=== PATIENT | male | born 1940 | race Caucasian/White ===

== ENCOUNTER 2016-06-21 23:38 | Inpatient (IN) | payer OTHER ==
[~2016-06-21] VITALS: Ht 180.3 cm; Wt 86.9 kg
[~2016-06-21 23:38] MED LIST: ASPIR-LOW81 MG PO; CALTRATE+D3 PL1 EACH PO; GLIMEPIRIDE4 MG PO; JENTADUETO 2.51 EAC2 PO; VITAMIN D31000 UNI2 PO
[2016-06-21 23:56] LABS: HEMATOCRIT 44.8 % (38.0-50.0); MCHC 36.2 G/DL (30.0-36.0); MCV 85.8 FL (86-99); MEAN PLAT.VOLUME 10.4 uM^3 (9.0-12.4); PLATELET COUNT 165 K/uL (156-360); RBC DIS.WIDTH-CV 13.5 % (11.8-14.6); RBC DIS.WIDTH-SD 41.8 % (39-53); RED BLOOD COUNT 5.22 M/uL (4.00-5.50); WHITE BLOOD COUNT 14.1 K/uL (4.1-10.2)
[2016-06-22 00:08] LABS: CHLORIDE 103 mEq/L (99-109); POTASSIUM 4.4 mEq/L (3.7-5.4); SODIUM 140 mEq/L (136-147)
[2016-06-22 00:10] LABS: GLUCOSE 236 mg/dL (70-99)
[2016-06-22 00:11] LABS: ANION GAP 13 MEQ/L (2-14)
[2016-06-22 00:12] LABS: TOTAL BILIRUBIN 3.4 mg/dL (0.0-1.0)
[2016-06-22 00:14] LABS: ALKALINE PHOSPHATASE 120 IU/L (3-129); GFR ESTIMATE (CALCULATED) 42 mL/min/
[2016-06-22 00:15] LABS: UREA NITROGEN (BUN) 20 mg/dL (9-23)
[2016-06-22 00:45] LABS: LIPASE 823 U/L (1.0-51.0)
[2016-06-22] MEDS ORDERED: GLUCOPHAGE1000 MG PO (01:56)
[2016-06-22] MEDS ORDERED: TRADJENTA5 MG PO (01:57)
[2016-06-22] MEDS ORDERED: CALTRATE PLUS1 EACH PO (01:57)
[2016-06-22 04:42] LABS: ADD MIUA? YES; BILIRUBIN SMALL; BLOOD NEGATIVE; COLOR DK YELLOW ((YELLOW)); GLUCOSE (STRIP) 250; KETONES 15; LEUKOCYTES NEGATIVE; NITRITE NEGATIVE; PROTEIN (STRIP) 30; SPECIFIC GRAVITY 1.021 (1.000-1.030)
[2016-06-22 05:04] LABS: BACTERIA 1+; EPITHELIAL CELLS RARE; MUCUS NONE SEEN; RED BLOOD CELLS 0-5 /HPF (0-5); UCUL ADDED? NO; WHITE BLOOD CELLS NONE SEEN /HPF (0-5)
[2016-06-22 05:05] LABS: CASTS PRESENT /LPF; CRYSTALS NONE SEEN; HYALINE CASTS 0-5 /LPF
[2016-06-22 10:28] LABS: EOSINOPHIL (%) 0.2 % (0-5); HEMATOCRIT 39.9 % (38.0-50.0); IMMATURE GRANULOCYTE (%) 0.1 % (0.0-0.7); IMMATURE GRANULOCYTE COUNT 0.2 K/uL; LYMPHOCYTE COUNT 1.1 K/uL (1.0-2.8); MCH 30.9 PG (29.0-34.0); MCHC 35.6 G/DL (30.0-36.0); MCV 86.9 FL (86-99); MEAN PLAT.VOLUME 11.1 uM^3 (9.0-12.4); MONOCYTE (%) 5.3 % (3-12); MONOCYTE COUNT 0.8 K/uL (0-0.8); NEUTROPHIL (%) 87.1 % (45-76); NEUTROPHIL COUNT 12.9 K/uL (1.8-6.4); PLATELET COUNT 148 K/uL (156-360); RBC DIS.WIDTH-CV 13.8 % (11.8-14.6); RED BLOOD COUNT 4.59 M/uL (4.00-5.50); WHITE BLOOD COUNT 14.8 K/uL (4.1-10.2)
[2016-06-22 10:34] LABS: CHLORIDE 108 mEq/L (99-109); SODIUM 141 mEq/L (136-147)
[2016-06-22 10:37] LABS: GLUCOSE 187 mg/dL (70-99)
[2016-06-22 10:38] LABS: ANION GAP 9 MEQ/L (2-14)
[2016-06-22 10:40] LABS: ALKALINE PHOSPHATASE 116 IU/L (3-129); GFR ESTIMATE (CALCULATED) 42 mL/min/
[2016-06-22 10:41] LABS: UREA NITROGEN (BUN) 19 mg/dL (9-23)
[2016-06-22 10:43] LABS: TOTAL BILIRUBIN 4.8 mg/dL (0.0-1.0)
[2016-06-22 11:46] LABS: POINT-OF-CARE METER ID UU13113747
[2016-06-22 14:14] VITALS: BP 126/73
[2016-06-22 14:30] VITALS: BP 126/73
[2016-06-22 18:03] LABS: POINT-OF-CARE METER ID UU13113725
[2016-06-22 21:41] LABS: POINT-OF-CARE METER ID UU13113725
[2016-06-22 22:51] VITALS: BP 117/56
[2016-06-23 06:52] LABS: POINT-OF-CARE METER ID UU13113725
[2016-06-23 07:23] LABS: ANION GAP 6 MEQ/L (2-14); CHLORIDE 108 MEQ/L (99-109); GFR ESTIMATE (CALCULATED) 49 mL/min/; GLUCOSE 146 mg/dL (70-99); POTASSIUM 4.3 MEQ/L (3.7-5.4); SAMPLE HEMOLYSIS CHECK 0; SAMPLE ICTERIC CHECK 1; SAMPLE LIPEMIA CHECK 0; SODIUM 139 MEQ/L (136-147); UREA NITROGEN (BUN) 16 mg/dL (9-23)
[2016-06-23 07:34] LABS: EOSINOPHIL (%) 4.5 % (0-5); EOSINOPHIL COUNT 0.3 K/uL (0-0.3); HEMATOCRIT 39.6 % (38.0-50.0); LYMPHOCYTE COUNT 0.8 K/uL (1.0-2.8); MCH 29.8 PG (29.0-34.0); MCHC 33.6 G/DL (30.0-36.0); MCV 88.8 FL (86-99); MEAN PLAT.VOLUME 11.3 uM^3 (9.0-12.4); MONOCYTE (%) 7.6 % (3-12); MONOCYTE COUNT 0.5 K/uL (0-0.8); NEUTROPHIL (%) 74.7 % (45-76); NEUTROPHIL COUNT 4.8 K/uL (1.8-6.4); PLATELET COUNT 127 K/uL (156-360); RBC DIS.WIDTH-CV 14.2 % (11.8-14.6); RBC DIS.WIDTH-SD 46.3 % (39-53); RED BLOOD COUNT 4.46 M/uL (4.00-5.50)
[2016-06-23 07:50] LABS: WHITE BLOOD COUNT 6.4 K/uL (4.1-10.2)
[2016-06-23 08:00] VITALS: BP 138/71
[2016-06-23 09:53] LABS: ALKALINE PHOSPHATASE 100 IU/L (3-129); DIRECT BILIRUBIN 3.9 mg/dL (0.0-0.3); TOTAL BILIRUBIN 5.8 MG/DL (0.0-1.0)
[2016-06-23 10:49] LABS: LIPASE 14 U/L (1.0-51.0)
[2016-06-23 17:31] VITALS: BP 138/64
[2016-06-23 21:27] LABS: POINT-OF-CARE METER ID UU13113725
[2016-06-23 23:11] VITALS: BP 144/67
[2016-06-24 06:12] LABS: POINT-OF-CARE METER ID UU13113725
[2016-06-24 07:25] LABS: INTER. NORMALIZED RATIO 1.2; PROTHROMBIN TIME 12.1 (9.2-11.2); PTT 28.6 (25-32)
[2016-06-24 07:40] LABS: ALKALINE PHOSPHATASE 107 IU/L (3-129); ANION GAP 10 MEQ/L (2-14); CHLORIDE 107 MEQ/L (99-109); DIRECT BILIRUBIN 1.3 mg/dL (0.0-0.3); GFR ESTIMATE (CALCULATED) > 59 mL/min/; GLUCOSE 135 mg/dL (70-99); POTASSIUM 4.1 MEQ/L (3.7-5.4); SAMPLE HEMOLYSIS CHECK 0; SAMPLE ICTERIC CHECK 0; SAMPLE LIPEMIA CHECK 0; SODIUM 140 MEQ/L (136-147); UREA NITROGEN (BUN) 13 mg/dL (9-23)
[2016-06-24 07:41] LABS: TOTAL BILIRUBIN 2.5 MG/DL (0.0-1.0)
[2016-06-24 08:07] VITALS: BP 177/84
[2016-06-24 10:23] VITALS: BP 163/83
[2016-06-24 15:54] VITALS: BP 161/97
[2016-06-24 20:12] VITALS: BP 148/75
[2016-06-24 20:42] LABS: POINT-OF-CARE METER ID UU13113725
[2016-06-24 23:32] VITALS: BP 134/76
[2016-06-25 06:21] LABS: MCH 29.6 PG (29.0-34.0); MCHC 33.5 G/DL (30.0-36.0); MCV 88.5 FL (86-99); MEAN PLAT.VOLUME 11.2 uM^3 (9.0-12.4); PLATELET COUNT 130 K/uL (156-360); RBC DIS.WIDTH-CV 13.9 % (11.8-14.6); RBC DIS.WIDTH-SD 44.9 % (39-53); RED BLOOD COUNT 4.52 M/uL (4.00-5.50); WHITE BLOOD COUNT 5.8 K/uL (4.1-10.2)
[2016-06-25 06:56] LABS: ALKALINE PHOSPHATASE 96 IU/L (3-129); ANION GAP 9 MEQ/L (2-14); CHLORIDE 105 MEQ/L (99-109); GFR ESTIMATE (CALCULATED) > 59 mL/min/; GLUCOSE 140 mg/dL (70-99); POTASSIUM 3.8 MEQ/L (3.7-5.4); SAMPLE HEMOLYSIS CHECK 0; SAMPLE ICTERIC CHECK 0; SAMPLE LIPEMIA CHECK 0; SODIUM 137 MEQ/L (136-147); UREA NITROGEN (BUN) 11 mg/dL (9-23)
[2016-06-25 06:59] LABS: TOTAL BILIRUBIN 1.9 MG/DL (0.0-1.0)
[2016-06-25 08:25] VITALS: BP 152/71
[2016-06-25 11:34] LABS: POINT-OF-CARE METER ID UU13113725
[2016-06-25 13:03] VITALS: BP 157/81
== END 2016-06-25 14:11 | disposition home or self-care (01) | DRG 417 ==
LOC: EME 23:38 → EDOF 06-22 04:20 → 5EAST 06-22 04:20
PROVIDERS: Hospitalist; Internal Medicine; Specialist; Surgery
DX: K80.00 Calculus of gallbladder with acute cholecystitis without obstruction (principal); K85.10 Biliary acute pancreatitis without necrosis or infection; K42.9 Umbilical hernia without obstruction or gangrene; E80.6 Other disorders of bilirubin metabolism; K76.0 Fatty (change of) liver, not elsewhere classified; N28.9 Disorder of kidney and ureter, unspecified; E11.65 Type 2 diabetes mellitus with hyperglycemia; I10 Essential (primary) hypertension; Z96.642 Presence of left artificial hip joint; Z87.891 Personal history of nicotine dependence
CPT/HCPCS: 74176; 74181; 80048; 80053; 80076; 81003; 82948; 83690; 85025; 85027; 85610; 85730; 88304; 99281; 99285; J0330; J0696; J1335; J1644; J1815; J2270; J2405; J2710; J3010; J7030; J7040; J7050; S0020; S0028